=== PATIENT | male | born 1960 | race Caucasian/White ===

== ENCOUNTER 2024-03-02 05:58 | Emergency (ER) | payer OTHER, SELFPAY ==
[2024-03-02 06:22] VITALS: BP 150/79
--- NOTE | 2024-03-02 08:17 | ED.GENMED ---
History of Present Illness
General
Chief Complaint: Musculo-Skeletal Complaint
Source: patient
Exam Limitations: none
Time Seen by Provider: 03/02/24 08:01
Nursing documentation reviewed up to this point in time: agreed with
History of Present Illness
History of Present Illness:
Patient is a 64-year-old male who presents to the ER for evaluation of left knee pain. Patient was at a wedding last night dancing and felt pain in his knee. Since then he does have pain. He does have pain with weightbearing but is able to
weight-bear. He took Tylenol arthritis for discomfort last night and nothing this morning. No other injuries.
Past History
Past History
ED Past Medical History: None
ED Past Surgical History: None
Social History
Tobacco: Non-smoker
Alcohol: Occasional
Personal:
Living: with family
Employment: Employed
Family History
Family History: Negative Early CAD, CAD or Sudden
Review of Systems
Review of Systems
Allergies reviewed?: Yes
All Other Systems: ROS reviewed and negative except as documented in HPI and ROS
Constitutional: Reports no symptoms
Musculoskeletal: Reports other (Left knee pain)
Skin: Reports no symptoms
Neurological: Reports no symptoms
Psychiatric: Reports no symptoms
Phy Exam
General Physical Exam
General Presentation: no apparent distress
General age: appears stated age
General Skin: warm and dry
General Habitus: normal
General Mental: alert
General Hydration: appears well hydrated
Neurological Exam
Neurological Exam: alert and oriented x3
Musculoskeletal Exam
Musculoskeletal Exam: other (Left lower EXTR strong pulses no obvious swelling to knee, able to flex and extend no pain or laxity on medial lateral stress negative neg lachmans )
Skin Exam
Skin Exam: normal color and warm/dry
Psychiatric Exam
Psychiatric Exam: normal mood/affect
Course
Orders/Labs/Results
Orders:
Orders
03/02/24 06:25
CR Knee - Left 4 Or More View* Urgent
Comment:
Reason For Exam: pain, injury
03/02/24 08:16
Crutches-Treatment ONCE
Knee Immobilizer Left-Treatmen ONCE
Ibuprofen [Motrin] 600 mg PO NOW STA
Vital Signs
Initial and Last Documented VS:
Initial Vital Signs
Temp Pulse Resp BP Pulse Ox
98.6 F 55 16 150/79 97
03/02/24 06:22 03/02/24 06:22 03/02/24 06:22 03/02/24 06:22 03/02/24 06:22
Last Documented Vital Signs
Temp Pulse Resp BP Pulse Ox
98.6 F 55 16 150/79 97
03/02/24 06:22 03/02/24 06:22 03/02/24 06:22 03/02/24 06:22 03/02/24 06:22
MDM/Problems Addressed
Differential Diagnosis Includes:
Not limited to knee sprain strain, meniscus injury
MDM/Problems Addressed:
Patient with good movement no obvious effusion no obvious findings on x-ray. Likely sprain strain injury of the ligament. Will DC with ice Motrin immobilizer Ortho follow-up if needed
*Radiology
Radiology exam reviewed: radiology read reviewed
*Critical Care Note
Total Time (30-74mins, 75-104mins- exclusive of procedures): Not Applicable
ED Attending Note
-
Portions of this chart may have been created with voice recognition software.� Occasional wrong word or��sound alike� substitutions may have occurred due to the inherent limitations of voice recognition software.
Discharge Plan
Departure
Patient Disposition: Home (Routine Discharge)
Date of Disposition: 03/02/24
Time of Disposition: 08:19
Patient with high blood pressure during this ER visit?: Yes
Covid-19: Not Applicable
Discharge Problem:
Knee sprain
Instructions: Knee Immobilizer (DC), Knee Sprain (DC)
Prescriptions:
No Action
No Current Medications
0
Referrals:
Jose R Cox DO [Family Provider] -
Louie Ny MD [Active] -
Activity Restrictions/Additional Instructions:
As discussed ice the area for the first 24-48 hours for 20 minutes at a time several times a day .
Wear immobilizer for support but remove at night while sleeping. Keep elevate is much as possible. You may take ibuprofen 400 mg - 600 mg every 8 hours. Follow-up with either family doctor or orthopedics in the next several days for reevaluation.
Interventions
Interventions:
*Risk Screen - Suicide Last Done: 03/02/24 06:22
*General Assessment Last Done: 03/02/24 06:22
*Neglect/Abuse Screening Last Done: 03/02/24 06:22
ED- Fall Risk Assessment Last Done: 03/02/24 09:30
*ED COVID-19 Vaccine History Last Done: 03/02/24 09:30
*Nursing Disposition Last Done: 03/02/24 09:14
ED-Musculoskeletal Assessment Last Done: 03/02/24 09:30
Discharge Date and Time
Discharge Date/Time: 03/02/24 09:14
Print Language: HUNGARIAN
[2024-03-02] MEDS: MOTRIN 600 MG PO (09:06)
== END 2024-03-02 09:14 | disposition home or self-care (01) ==
LOC: EMR 05:58
PROVIDERS: EMERGENCY PHYSICIAN Emergency Medicine; FAMILY PHYSICIAN Student in an Organized Health Care Education/Training Program
DX: S83.92XA Sprain of unspecified site of left knee, initial encounter (principal); X58.XXXA Exposure to other specified factors, initial encounter; Y93.41 Activity, dancing; I10 Essential (primary) hypertension
CPT/HCPCS: 99283; 29505; 73564

== ENCOUNTER 2024-10-16 06:38 | Day surgery (SDC) | payer OTHER, SELFPAY | END 2024-10-16 09:16 | disposition home or self-care (01) | LOC: GI 06:38 | PROVIDERS: ATTENDING PHYSICIAN Internal Medicine | DX: Z12.11 Encounter for screening for malignant neoplasm of colon (principal); K64.8 Other hemorrhoids; D12.0 Benign neoplasm of cecum; D12.2 Benign neoplasm of ascending colon; D12.5 Benign neoplasm of sigmoid colon; K63.5 Polyp of colon; K62.1 Rectal polyp | CPT/HCPCS: 45385; 45380; 88305 ==